=== PATIENT | male | born 1980 | race Caucasian/White ===

== ENCOUNTER 2018-10-24 04:54 | Emergency (ER) | payer MEDICAID ==
[~2018-10-24] VITALS: Ht 157.5 cm; Wt 83.9 kg
[2018-10-24 05:27] VITALS: BP 143/96
== END 2018-10-24 10:22 | disposition home or self-care (01) ==
LOC: ER 04:57
DX: S01.81XA Laceration without foreign body of other part of head, initial encounter (principal); W26.8XXA Contact with other sharp object(s), not elsewhere classified, initial encounter; Y93.89 Activity, other specified; Y99.8 Other external cause status; Y92.89 Other specified places as the place of occurrence of the external cause
CPT/HCPCS: 12013; 70450

== ENCOUNTER 2019-04-28 10:29 | Emergency (ER) | payer MEDICAID, OTHER ==
[~2019-04-28] VITALS: Ht 188 cm; Wt 79.4 kg
[2019-04-28 11:46] VITALS: BP 136/93
== END 2019-04-28 12:36 | disposition home or self-care (01) ==
LOC: ER 10:37
DX: S29.011A Strain of muscle and tendon of front wall of thorax, initial encounter (principal); S20.212A Contusion of left front wall of thorax, initial encounter; Y04.2XXA Assault by strike against or bumped into by another person, initial encounter; Y93.89 Activity, other specified; Y92.89 Other specified places as the place of occurrence of the external cause; Y99.8 Other external cause status
CPT/HCPCS: 71101

== ENCOUNTER 2019-10-20 17:18 | Emergency (ER) | payer OTHER | END 2019-10-20 18:15 | disposition left against medical advice (07) | LOC: ER 17:18 | DX: M79.603 Pain in arm, unspecified (principal); Z53.21 Procedure and treatment not carried out due to patient leaving prior to being seen by health care provider ==

== ENCOUNTER 2019-10-23 15:15 | Emergency (ER) | payer OTHER ==
[~2019-10-23] VITALS: Ht 188 cm; Wt 77.1 kg
[2019-10-23 15:35] VITALS: BP 149/90
== END 2019-10-23 19:30 | disposition left against medical advice (07) ==
LOC: ER 15:15
DX: L03.113 Cellulitis of right upper limb (principal)
CPT/HCPCS: 73200

== ENCOUNTER → 2023-07-12 | Emergency (ER) | payer MEDICAID, OTHER ==
[~2023-07-12] VITALS: Ht 170.2 cm; Wt 77.0 kg
[~2023-07-12] MED LIST: IOHEXOL 300 MG/ML 100ML BOTTLE IJ ONE; SODIUM CHLORIDE 0.9% 1,000 ML IV ONE
[2023-07-12 12:46] VITALS: BP 141/79; PULSE 72; RESP 16; O2SAT 94
[2023-07-12 13:23] LABS: Basophils # (auto) 0 10 ^3/uL (0-0.2); Basophils % (auto) 0.4 % (0.0-2.0); Eosinophils # (auto) 0.1 10 ^3/uL (0-0.8); Eosinophils % (auto) 1.3 % (0.0-7.0); Hematocrit 41.4 % (41.0-53.0); Hemoglobin 13.5 g/dL (13.5-17.5); Lymphocytes # (auto) 1.8 10 ^3/uL (0.4-5.4); Lymphocytes % (auto) 28.9 % (10.0-50.0); Mean Corpuscular Hemoglobin 27.7 pg (28.0-32.0); Mean Corpuscular Hgb Conc. 32.7 g/dL (32.0-36.0); Mean Corpuscular Volume 84.8 fL (80.0-100.0); Monocytes # (auto) 0.4 10 ^3/uL (0-1.3); Monocytes % (auto) 6.5 % (0.0-12.0); Neutrophils % (auto) 62.9 % (37.0-80.0); Red Blood Cells 4.88 10^6/uL (4.5-5.90); Red Cell Distribution Width 13.9 % (11.8-14.3); White Blood Cell 6.3 10^3/uL (4.4-10.8)
[2023-07-12 13:36] LABS: Alanine Aminotransferase 31 U/L (7-40); Albumin 4.2 g/dL (3.2-4.8); Alkaline Phosphatase 82 U/L (46-116); Aspartate Aminotransferase 33 U/L (13-40); BUN/Creatinine Ratio 17.1 (10.0-20.0); Blood Urea Nitrogen 20 mg/dL (9-23); Calcium 9.1 mg/dL (8.5-10.1); Chloride 106 mmol/L (98-107); Creatine Kinase IFCC 428 U/L (46-171); Glucose 171 mg/dL (74-106); Lipase 34 U/L (12-53); Potassium 3.7 mmol/L (3.5-5.1); Sodium 141 mmol/L (136-145)
[2023-07-12 13:37] LABS: Bilirubin, Total 0.5 mg/dL (0.2-1.0); Total Protein 6.9 g/dL (5.7-8.2)
== END | disposition home or self-care (01) ==
LOC: EDUNIT# 12:26 → EDBD 12:34 → ER 12:34
DX: F19.10 Other psychoactive substance abuse, uncomplicated (principal); R19.7 Diarrhea, unspecified; R10.13 Epigastric pain; Z53.29 Procedure and treatment not carried out because of patient's decision for other reasons
CPT/HCPCS: 36415; 80053; 82550; 83605; 83690; 83735; 84484; 85025; 99283; Q9967

== ENCOUNTER 2023-08-23 22:58 | Emergency (ER) | payer MEDICAID ==
[~2023-08-23] VITALS: Ht 188 cm; Wt 79.3 kg
[2023-08-24 02:16] VITALS: TEMP 98.2
[2023-08-24 02:44] VITALS: BP 153/98; PULSE 90; RESP 18; O2SAT 97
[2023-08-24] MEDS ORDERED: HYDR-4902 PO (02:56)
[2023-08-24] MEDS ORDERED: AMOX875T4 PO (03:17)
== END 2023-08-24 03:18 | disposition home or self-care (01) ==
LOC: ER 22:58
DX: S51.832A Puncture wound without foreign body of left forearm, initial encounter (principal); F15.90 Other stimulant use, unspecified, uncomplicated; W45.8XXA Other foreign body or object entering through skin, initial encounter; Y93.89 Activity, other specified; Y92.89 Other specified places as the place of occurrence of the external cause; Y99.8 Other external cause status
CPT/HCPCS: 12001; 73090

== ENCOUNTER 2023-12-29 11:36 | Emergency (ER) | payer MEDICAID ==
[~2023-12-29] VITALS: Ht 188 cm; Wt 83.6 kg
[~2023-12-29 11:36] MED LIST changes: +AMOX875T4 PO; +HYDR-4902 PO; -IOHEXOL 300 MG/ML 100ML BOTTLE IJ ONE; -SODIUM CHLORIDE 0.9% 1,000 ML IV ONE
[2023-12-29 12:33] VITALS: BP 135/92; PULSE 80; RESP 16; O2SAT 100
[2023-12-29] MEDS ORDERED: VANCOMYCIN 1GM/200ML 200 ML IV ONE (13:00)
[2023-12-30] MEDS ORDERED: CEPH500C PO (01:26)
[2023-12-30] MEDS ORDERED: IBUP-1455 PO (01:26)
== END 2023-12-29 14:50 | disposition home or self-care (01) ==
LOC: ER 11:36
DX: L03.114 Cellulitis of left upper limb (principal); M65.88 Other synovitis and tenosynovitis, other site; F19.90 Other psychoactive substance use, unspecified, uncomplicated; Z79.2 Long term (current) use of antibiotics; Z79.899 Other long term (current) drug therapy

== ENCOUNTER 2023-12-29 22:17 | Emergency (ER) | payer MEDICAID ==
[~2023-12-29] VITALS: Ht 188 cm; Wt 81.8 kg
[2023-12-30] MEDS ORDERED: IBUP-1455 PO (01:26)
[2023-12-30] MEDS ORDERED: CEPH500C PO (01:26)
[2023-12-30] MEDS ORDERED: LIDOCAINE 1% HCL (LOCAL ANESTH.) INJ 20ML MDV ONE (02:55)
[2023-12-30] MEDS: CEPHALEXIN 250 MG CAP PO ONE (03:04)
[2023-12-30] MEDS: KETOROLAC TROMETH 60MG/2ML VIAL IM ONE (03:05)
[2023-12-30] MEDS: LIDOCAINE 1% HCL (LOCAL ANESTH.) INJ 20ML MDV IJ ONE (03:05)
[2023-12-30] MEDS: cefTRIAXone SOD 1,000 MG VL IM ONE (03:05)
[2023-12-30 03:06] VITALS: BP 165/99; PULSE 69; RESP 19; TEMP 98.4; O2SAT 99
== END 2023-12-30 03:09 | disposition home or self-care (01) ==
LOC: ER 22:17
DX: R22.32 Localized swelling, mass and lump, left upper limb (principal); L08.9 Local infection of the skin and subcutaneous tissue, unspecified; Z79.2 Long term (current) use of antibiotics; Z79.899 Other long term (current) drug therapy
CPT/HCPCS: 73130; 96372; 99284; J0696; J1885; J2001